=== PATIENT | female | born 2000 | race American Indian/Alaskan Native ===

== ENCOUNTER 2024-09-29 17:11 | Emergency (ER) | payer OTHER ==
[~2024-09-29] VITALS: Ht 167.6 cm; Wt 68.0 kg
[2024-09-29] MEDS ORDERED: LEVALBUTEROL HCL 0.63 MG/3 ML SOLUTION IH ONE ×2 (17:45→22:11)
[2024-09-29] MEDS ORDERED: AZITHROMYCIN 2 MG/ML REDILUIDO IV ONE (17:45)
[2024-09-29 17:47] LABS: HEMATOCRIT 41.2 % (36.0-45.00); MEAN CELL VOLUME 87.9 fL (80.00-100.00); MEAN CORPUSCULAR HEMOGLOBIN 29.9 pg (27.00-32.0); PLATELET COUNT 337 K/uL (150-450); RED BLOOD COUNT 4.68 M/uL (4.00-6.00); RED CELL DISTRIBUTION WIDTH 12.9 % (11.5-14.5)
[2024-09-29 18:18] LABS: INR 0.98; PARTIAL THROMBOPLASTIN TIME 22.8 SECONDS (22.0-34.0); PROTHROMBIN TIME 10.7 SECONDS (9.0-11.5)
[2024-09-29 18:23] LABS: ALBUMIN 3.5 gm/dL (3.4-5.0); BILIRUBIN TOTAL 0.38 mg/dL (0.3-1.2); CALCIUM 8.8 mg/dL (8.5-10.1); CREATININE SERUM 0.91 mg/dL (0.55-1.02); GFR 75.32; GLOBULINA 4.5 G/DL (2.4-3.5); POTASSIUM 3.89 mEq/L (3.5-5.1)
[2024-09-29 19:38] LABS: COVID-19 AG NEGATIVE (NEGATIVE)
[2024-09-29 19:40] LABS: INFLUENZA A AG POSITIVE (NEGATIVE)
[2024-09-29] MEDS ORDERED: OSELTAMIVIR PHOSPHATE 75 MG CAPSULE PO SCH (19:59)
[2024-09-29] MEDS ORDERED: OSELTAMIVIR PHOSPHATE 75 MG CAPSULE PO ONE (20:00)
[2024-09-29 22:10] LABS: ABG PH 7.391 (7.35-7.45); ABG PO2 110.3 mmHg (80-100); ABG pCO2 36.2 mmHg (35-45); BASE EXCESS -2.8 mmol/l; BICARBONATE 21.5 mmol/l (23-25); SaO2 98.2 %; Tco2 22.6 mmol/l
[2024-09-29 22:31] LABS: allen test SATISFACTORY; mode NASAL CANNULA; puncture site RADIAL LEFT
[2024-09-29 22:32] LABS: o2 28 %
== END 2024-09-29 23:48 | disposition home or self-care (01) ==
LOC: ER 17:11
PROVIDERS: Emergency Medicine
DX: J10.1 Influenza due to other identified influenza virus with other respiratory manifestations (principal); T75.1XXA Unspecified effects of drowning and nonfatal submersion, initial encounter; W73.XXXA Other specified cause of accidental non-transport drowning and submersion, initial encounter; Y93.89 Activity, other specified; Y92.89 Other specified places as the place of occurrence of the external cause; J45.909 Unspecified asthma, uncomplicated; Z20.822 Contact with and (suspected) exposure to COVID-19